=== PATIENT | female | born 1955 | race Caucasian/White ===

== ENCOUNTER 2018-07-06 11:06 | Emergency (ER) | payer BC, SELFPAY ==
[2018-07-06] VITALS (11 sets, daily range): BP systolic 108–152; BP diastolic 63–78; PULSE 64–85; RESP 14–34; TEMP 36.6; O2SAT 95–100; BMI 38.2
[2018-07-06 11:34] LABS: Hemoglobin 15.2 g/dL (12.0-16.0); Mean Corpuscular HGB Conc 33.8 % (30-36); Mean Corpuscular Volume 82.8 fL (80-100); Platelet Count 254 X10^3/uL (150-400); Red Blood Cell Count 5.43 X10^6/uL (4.0-5.2); Red Cell Distribution Width 14.2 % (11.6-14.8); White Blood Cell Count 10.2 X10^3/uL (4.5-11.0)
[2018-07-06 11:40] LABS: Alanine Aminotransferase 59 IU/L (9-52); Albumin 4.6 g/dL (3.5-5.0); Albumin Globulin Ratio 1.4 (1.0-2.8); Alkaline Phosphatase 75 U/L (38-126); Aspartate Aminotransferase 49 IU/L (14-36); BUN Creatinine Ratio 15.7 (6-22); Bilirubin Total 1.3 mg/dL (0.2-1.3); Blood Urea Nitrogen 11 mg/dL (7-17); Carbon Dioxide 27 mmol/L (22-32); Chloride 104 mmol/L (98-107); Creatine Kinase 148 U/L (30-135); Estimated Glomerular Filt Rate > 60.0 mL/min (>60); Globulin 3.4 g/dL (1.7-4.1); Glucose 100 mg/dL (80-110); HEMOLYSIS 23 (0-50); Potassium 4.2 mmol/L (3.4-5.1); Sodium 143 mmol/L (137-145)
[2018-07-06 11:54] LABS: Troponin I < 0.012 ng/mL (0.01-0.034)
[2018-07-06 11:55] LABS: CKMB % Relative Index 0.5 % (1.5-5.0); Creatine Kinase MB 0.78 ng/mL (<2.37); Neutrophils Absolute Manual 6834 /uL (3000-5900); Total Cells Counted 100
[2018-07-06 11:56] LABS: RBC Morphology Normal Morphology
[2018-07-06 13:14] LABS: Lipase 54 U/L (23-300)
--- NOTE | 2018-07-06 14:15 | DI.US.S_ITS ---
PROCEDURE: US ABDOMEN COMPLETE INDICATIONS: upper abd pain, eval CBD root TECHNIQUE: Real-time scanning was performed of the abdominal and retroperitoneal organs, with image documentation. COMPARISON: None. FINDINGS: Liver: Liver is normal in size and demonstrates diffusely increased echotexture. Gallbladder: Surgically absent. Biliary ducts: Intrahepatic bile ducts are non-dilated. Extrahepatic bile duct caliber measures 12 mm. Normal is 6-7 mm or less in diameter, or 10 mm or less post-cholecystectomy. Pancreas: Obscured by overlying bowel gas. Spleen: Spleen is normal in size and homogeneous in echotexture. Kidneys: Kidneys are normal in size and echotexture. Right kidney measures 11.9 cm long; left kidney measures 11.6 cm long. No hydronephrosis or nephrolithiasis. No solid masses. Aorta: Obscured by overlying bowel gas. Iliacs: Proximal common iliac arteries are obscured by overlying bowel gas. IVC: Intrahepatic inferior vena cava is normal the visualized. Miscellaneous: No free abdominal fluid. IMPRESSION: 1. Diffusely increased hepatic echotexture. This finding is most likely secondary to hepatic fatty infiltration although other hepatocellular disease may have a similar appearance. Recommend clinical correlation. 2. There is dilation of common bile duct, which may be related to cholecystectomy or caused by biliary obstruction. Please correlate with serum bilirubin. 3. Suboptimal examination. Pancreas, aorta, and proximal common iliac arteries are obscured by overlying bowel gas. Dictated by: Rome Gaines M.D. on 07/06/2018 at 16:28 Approved by: Rome Gaines M.D. on 07/06/2018 at 16:31
--- NOTE | 2018-07-06 15:29 | ED.CHESTPAIN ---
HPI - Chest Pain General Chief Complaint: Chest Pain Stated Complaint: PER DR BURKETT GET CHECKED ? HEART ATTACK Time Seen by Provider: 07/06/18 11:13 Source: patient Mode of arrival: ambulatory Limitations: no limitations History of Present Illness HPI narrative: Patient complains of pain across her bilateral upper abdomen and lower chest in a band, on and off for the last several days. Patient states her last episode was 530 this morning, and lasted for about an hour. Patient states that she has noticed that the pain has come on the last couple of times after she has eaten chocolate candies. Patient states she has a history of cholecystectomy, but that the symptoms feel very much like when she used to have her gallbladder attacks. Patient states that she has no history of coronary artery disease that she knows of. She has not noticed any change in her symptoms or initiation of symptoms with any sort of exertion. Patient states she does not exercise much, but that she does try to eat healthy fully and does not have any medical problems that she knows of. Patient states that she does have a family history of coronary artery disease in her parents, but that they were smokers and lived very unhealthful lifestyles. Patient states she feels fine now and has no other complaints at this time. Her pain at the time of occurrence was about a 6/10. It is now 0/10. She states that it did radiate to her left shoulder and arm. No associated shortness of breath, nausea, or diaphoresis. Related Data Home Medications Medication Instructions Recorded Confirmed Vitamin D Gummy 1 tab PO DAILY 07/06/18 07/06/18 Allergies Allergy/AdvReac Type Severity Reaction Status Date / Time erythromycin base Allergy Unknown Verified 07/06/18 11:15 [ERYTHROMYCIN BASE] Review of Systems Review of Systems All systems reviewed & are unremarkable except as noted in HPI and below Constitutional Denies chills, Denies fever(s), Denies lethargy and Denies weakness Eyes Denies change in vision, Denies eye discharge, Denies irritation and Denies loss of vision ENT Ears, Nose, Mouth, and Throat: Denies change in voice, Denies neck pain and Denies sore throat Cardiovascular Denies chest pain, Denies irregular heart rhythm, Denies lightheadedness, Denies palpitations, Denies dyspnea, Denies dyspnea on exertion and Denies orthopnea Respiratory Denies cough, Denies dyspnea, Denies dyspnea on exertion and Denies wheezing Gastrointestinal Gastrointestinal: Reports abdominal pain, Denies change in bowel habits, Denies diarrhea, Denies nausea and Denies vomiting Genitourinary Denies hematuria, Denies flank pain, Denies urinary incontinence and Denies urinary urgency Musculoskeletal Denies neck pain Integumentary/Breasts Denies pruritus, Denies erythema, Denies rash and Denies wounds Neurologic Denies confusion, Denies loss of vision and Denies weakness Psychiatric Denies anxiety, Denies confusion, Denies depression, Denies homicidal ideation and Denies suicidal ideation Endocrine Denies palpitations Hematologic/Lymphatic Denies easy bruising Allergic/Immunologic Denies wheezing PFSH Medical History Anxiety (Chronic) Asthma (Chronic 1985) Cataract (Chronic 2009) Cervical radiculopathy (Chronic) Hayfever (Chronic) Hemorrhoids (Chronic) IBS (irritable bowel syndrome) (Chronic 1997) Lactose intolerance (Chronic 1997) Lumbar radiculopathy (Chronic) PTSD (post-traumatic stress disorder) (Chronic) Rosacea (Chronic) Shoulder pain (Chronic 2014) Acne (Resolved) Chicken pox (Resolved) Dermoid cyst (Resolved 1985) Dermoid cyst (Resolved 1987) Endometriosis (Resolved 1985) Gastric ulcer (Resolved 1995) Measles (Resolved) Mumps (Resolved) Ovarian cyst (Resolved) Surgical History Anesthesia (Resolved) History of cosmetic surgery (Resolved ~2001) History of oophorectomy, unilateral (Resolved 1985) History of oophorectomy, unilateral (Resolved 1987) Status post LASIK surgery (Resolved ~1999) Status post appendectomy (Resolved 1967) Status post cholecystectomy (Resolved 1996) Family History Brother Age: 58 Lymphoma Cancer Diabetes mellitus Asthma Brother Age: 57 Emphysema, unspecified Asthma Father Heart disease Lung disease Alcoholism Mother Age: 77 Heart disease Emphysema, unspecified Grandfather Heart disease Heart attack Grandmother Cancer Breast cancer Sister Age: 44 Asthma Brother No problems noted. Grandfather No problems noted. Grandmother MVA (motor vehicle accident) Sister No problems noted. Sister No problems noted. Social History Smoking Status: Never smoker Exam Initial Vital Signs Initial Vital Signs: Vital Signs Temperature 97.8 F 07/06/18 11:15 Pulse Rate 78 07/06/18 11:15 Respiratory Rate 18 07/06/18 11:15 Blood Pressure 108/78 07/06/18 11:15 Pulse Oximetry 99 07/06/18 11:15 Const General: cooperative and well developed Nutritional Appearance: well nourished Orientation: alert, awake, oriented x3 and not confused [facility] Head: normocephalic and atraumatic Ears: external ears normal Nose: external nose normal and No nasal discharge Face and sinus: face symmetric and No dry mucous membranes Mouth: oral mucosae normal and moist mucous membranes Teeth and gingiva: dentition normal Eyes General: appearance normal, both eyes and all related structures Eyelids: eyelids normal Conjunctivae: conjunctivae normal Sclera: sclerae normal Pupils: PERRL EOM: EOM intact bilaterally Neck Neck: normal visual inspection, trachea midline, No lymphadenopathy, No midline deformity and No JVD Lymphatic: No lymphedema Chest Chest: normal inspection of the chest Resp Effort & Inspection: normal respiratory effort, able to speak in complete sentences, no respiratory distress and no use of accessory muscles Auscultation: clear to auscultation bilaterally, no rales, no rhonchi and no wheezes Cardio Rate: regular rate Rhythm: regular rhythm Heart Sounds: no click, no gallops, no murmurs and no rubs Pulses: normal peripheral pulses GI Inspection: non-distended Palpation: soft, no hepatosplenomegaly, No guarding, No pulsatile mass and tender (Mild, epigastric) Auscultation: normal bowel sounds Back/Spine/Pelvis Back: No CVA tenderness Cervical Spine: cervical ROM normal and No pain with cervical ROM Thoracic/Lumbar Spine: thoracic and lumbar spine normal to inspection Skin General: no rashes or lesions noted, No jaundice and No petechiae Neuro General: alert, oriented x3, gait normal and no focal motor deficits Speech: speech normal Extrem General: full ROM, no clubbing, cyanosis or edema, no pedal edema and no calf tenderness Psych Appearance: well kempt Mental Status: mental status grossly normal Attitude: cooperative Thought Content: normal and suicidality Judgment: judgment good Course Course Narrative: Patient was worked up with labs, EKG, and ultimately, ultrasound of the right upper quadrant, after her LFTs were found to be mildly elevated. The patient's workup ultimately was negative. Patient remained stable in the emergency department and did not report worsening of symptoms. In fact, symptoms had completely resolved by the time of the patient's visit. Orders Ordered: ED Orders 07/06/18 11:13 EKG-12 Lead Stat 07/06/18 11:20 CBC manual diff [Complete Blood Count MAN DIFF] Stat CMP [Comprehensive Metabolic Panel] Stat Troponin & CK Cardiac Panel Stat 07/06/18 14:15 US abdomen limited Stat Vital Signs - 8 hr 07/06/18 11:15 07/06/18 11:30 07/06/18 12:00 Temperature 97.8 F Pulse Rate 78 69 64 Respiratory Rate 18 14 14 Blood Pressure 108/78 Blood Pressure [Left Arm] 145/63 H 140/66 Pulse Oximetry 99 97 100 07/06/18 12:30 07/06/18 13:00 07/06/18 13:30 Temperature Pulse Rate 73 65 85 Respiratory Rate 16 15 17 Blood Pressure Blood Pressure [Left Arm] 136/66 145/72 H 130/76 Pulse Oximetry 100 97 99 07/06/18 14:00 07/06/18 14:30 Temperature Pulse Rate 70 Respiratory Rate 14 Blood Pressure Blood Pressure [Left Arm] 133/66 135/75 Pulse Oximetry 96 MDM - Chest Pain Medical Records Data Attestation: I reviewed the patient's medical records. Lab Data Attestation: I reviewed the patient's lab results. Result diagrams: 07/06/18 11:20 07/06/18 11:20 Lab Results 07/06/18 07/06/18 07/06/18 Range/Units 11:20 11:20 Unknown WBC 10.2 (4.5-11.0) X10^3/uL RBC 5.43 H (4.0-5.2) X10^6/uL Hgb 15.2 (12.0-16.0) g/dL Hct 45.0 (36-46) % MCV 82.8 (80-100) fL MCH 28.0 (26-34) PG MCHC 33.8 (30-36) % RDW 14.2 (11.6-14.8) % Plt Count 254 (150-400) X10^3/uL Total Counted 100 Seg Neutrophils % 67.0 (38-70) % Lymphocytes % (Manual) 25.0 (25-45) % Monocytes % (Manual) 6.0 (2-11) % Eosinophils % (Manual) 2.0 (2-4) % Neutrophils # (Manual) 6834 H (6523-7834) /uL RBC Morphology Normal morphology Sodium 143 (137-145) mmol/L Potassium 4.2 (3.4-5.1) mmol/L Chloride 104 (98-107) mmol/L Carbon Dioxide 27 (22-32) mmol/L BUN 11 (7-17) mg/dL Creatinine 0.70 (0.52-1.04) mg/dL Estimated GFR > 60.0 (>60) mL/min BUN/Creatinine Ratio 15.7 (6-22) Glucose 100 (80-110) mg/dL Calcium 9.0 (8.4-10.2) mg/dL Total Bilirubin 1.3 (0.2-1.3) mg/dL AST 49 H (14-36) IU/L ALT 59 H (9-52) IU/L Alkaline Phosphatase 75 (38-126) U/L Total Creatine Kinase 148 H (30-135) U/L CK-MB (CK-2) 0.78 (<2.37) ng/mL CK-MB (CK-2) Rel Index 0.5 L (1.5-5.0) % Troponin I < 0.012 (0.01-0.034) ng/mL Total Protein 8.0 (6.3-8.2) g/dL Albumin 4.6 (3.5-5.0) g/dL Globulin 3.4 (1.7-4.1) g/dL Albumin/Globulin Ratio 1.4 (1.0-2.8) Lipase 54 (23-300) U/L Imaging Data US - abdomen: Radiologist's impression: PROCEDURE: US ABDOMEN COMPLETE INDICATIONS: upper abd pain, eval CBD root TECHNIQUE: Real-time scanning was performed of the abdominal and retroperitoneal organs, with image documentation. COMPARISON: None. FINDINGS: Liver: Liver is normal in size and demonstrates diffusely increased echotexture. Gallbladder: Surgically absent. Biliary ducts: Intrahepatic bile ducts are non-dilated. Extrahepatic bile duct caliber measures 12 mm. Normal is 6-7 mm or less in diameter, or 10 mm or less post-cholecystectomy. Pancreas: Obscured by overlying bowel gas. Spleen: Spleen is normal in size and homogeneous in echotexture. Kidneys: Kidneys are normal in size and echotexture. Right kidney measures 11.9 cm long; left kidney measures 11.6 cm long. No hydronephrosis or nephrolithiasis. No solid masses. Aorta: Obscured by overlying bowel gas. Iliacs: Proximal common iliac arteries are obscured by overlying bowel gas. IVC: Intrahepatic inferior vena cava is normal the visualized. Miscellaneous: No free abdominal fluid. IMPRESSION: 1. Diffusely increased hepatic echotexture. This finding is most likely secondary to hepatic fatty infiltration although other hepatocellular disease may have a similar appearance. Recommend clinical correlation. 2. There is dilation of common bile duct, which may be related to cholecystectomy or caused by biliary obstruction. Please correlate with serum bilirubin. 3. Suboptimal examination. Pancreas, aorta, and proximal common iliac arteries are obscured by overlying bowel gas. Dictated by: Rome Gaines M.D. on 07/06/2018 at 16:28 Approved by: Rome Gaines M.D. on 07/06/2018 at 16:31 ECG Data Attestation: I personally reviewed and interpreted this ECG as follows: (See below) Interpretation: Twelve lead EKG performed on July 06, 2018 at 11:13 a.m., as follows: Regular ventricular rhythm with a rate of 68 beats per minute NJ interval was 165 milliseconds QRS duration 81 millisecond QTC interval [address] or T-wave abnormalities In summary, no STEMI; normal sinus rhythm and normal EKG as interpreted by ED MD. [facility] Narrative Medical decision making narrative: The patient was advised of her negative workup. We have discussed possible etiologies for her pain as well as the usual indications for return. We have also discussed home management and need for follow-up. Discharge Plan Departure Patient Disposition: Home Clinical Impression: Atypical chest pain, Abdominal pain Discharge Date/Time: 07/06/18 17:42 Interventions: ED Discharge Assessment Last Done: 07/06/18 17:41 Instructions: DI for Abdominal Pain-Adult Activity Restrictions/Additional Instructions: Your labs looked good, with the exception of your liver enzymes, which were mildly elevated. Ultrasound was done for this reason, and did not show anything concerning. Your EKG also looked good, as did your pancreatic enzymes. There is no evidence of a serious or emergent cause of your symptoms at this time. Please discuss with your doctor, the possibility of having a stress test to further evaluate your heart. Prescriptions: No Action Vitamin D Gummy 1 tab PO DAILY RF: 0 Referrals: Mariaelena Tanner PA-C [Primary Care Provider] -
== END 2018-07-06 17:42 | disposition home or self-care (01) ==
PROVIDERS: Emergency Provider Emergency Medicine; PCP Physician Assistant Medical
DX: R07.89 Other chest pain (principal); R10.9 Unspecified abdominal pain
CPT/HCPCS: 36591; 76705; 80053; 82550; 82553; 83690; 84484; 85025; 93005; 99283; 99285

== ENCOUNTER → 2018-08-12 10:29 | Outpatient (CLI) | payer BC, SELFPAY ==
--- NOTE | 2018-08-12 | DI.CT.S_ITS ---
PROCEDURE: CT ABDOMEN PELVIS W CON INDICATIONS: ABDOMINAL PAIN TECHNIQUE: After the administration of oral and intravenous contrast, 5 mm thick sections acquired from the diaphragms to the symphysis. 5 mm thick coronal and sagittal reformats were performed. For radiation dose reduction, the following was used: automated exposure control, adjustment of mA and/or kV according to patient size. COMPARISON: [facility], US, US ABDOMEN COMPLETE, 07/06/2018, 16:13. FINDINGS: Image quality: Excellent. ABDOMEN: Lung bases: There is a small right lower lobe pulmonary nodule measuring up to approximately 6 mm with a small internal focus of calcification. Heart size is normal. Solid organs: Liver demonstrates no focal hepatic lesions. There is mild heterogeneous enhancement which may represent heterogeneous fat saturation or mild vascular shunting. The gallbladder is surgically absent. There is mild intra-and extra hepatic biliary ductal dilatation with the common bile duct measuring up to approximately 1.3 cm tapering distally into the ampulla of Vater. No calcified obstructing stone visualized. Pancreas enhances normally. No pancreatic duct dilatation or discrete pancreatic mass identified. Spleen is normal in size and enhancement. No adrenal nodules. Kidneys demonstrate hydronephrosis. Peritoneum and bowel: Stomach, small bowel, and colon loops are normal in caliber and wall thickness. There is colonic diverticulosis without acute diverticulitis. No free fluid or air. Nodes and vessels: No retroperitoneal or mesenteric adenopathy. There is mild hazy fat stranding of the mesentery with scattered small subcentimeter mesenteric lymph nodes. Aorta and inferior vena cava are normal in caliber. Miscellaneous: No ventral hernias. PELVIS: Genitourinary: Bladder wall thickness is normal. A small amount of endometrial fluid is demonstrated in the uterus. There is a right adnexal cyst measuring up to 2.2 cm. Miscellaneous: No inguinal hernias or adenopathy. Bones: No suspicious bony lesions. No vertebral body compression fractures. IMPRESSION: 1. 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 2. Mild biliary ductal dilatation may be associated with prior cholecystectomy. Recommend correlation with laboratory values. 3. Small amount of endometrial fluid and small right ovarian cyst. Given patient's age, recommend further evaluation with pelvic ultrasound if clinically indicated. Dictated by: Terry Damon M.D. on 08/12/2018 at 15:53 Approved by: Terry Damon M.D. on 08/12/2018 at 15:58
[2018-08-12 11:36] LABS: BUN Creatinine Ratio 18.8 (6-22); Blood Urea Nitrogen 15 mg/dL (7-17); Estimated Glomerular Filt Rate > 60.0 mL/min (>60)
== END ==
PROVIDERS: PCP Physician Assistant Medical; Visit Provider Physician Assistant Medical
DX: R10.13 Epigastric pain (principal); K83.8 Other specified diseases of biliary tract; K57.90 Diverticulosis of intestine, part unspecified, without perforation or abscess without bleeding; N83.201 Unspecified ovarian cyst, right side; R91.1 Solitary pulmonary nodule; Z90.49 Acquired absence of other specified parts of digestive tract; R79.89 Other specified abnormal findings of blood chemistry; R93.89 Abnormal findings on diagnostic imaging of other specified body structures
CPT/HCPCS: 36415; 74177; 82565; 84520; Q9967

== ENCOUNTER 2018-08-24 08:27 | Day surgery (SDC) | payer BC, SELFPAY ==
[2018-08-24] VITALS (7 sets, daily range): BP systolic 110–141; BP diastolic 57–83; PULSE 70–82; RESP 12–16; TEMP 36.2–37; O2SAT 96–99; BMI 39.1
--- NOTE | 2018-08-24 | PATH_ITS ---
[facility] Accession Number: [id number] . 01 Material submitted: . PART A: TRANSVERSE COLON POLYP PART B: RECTAL POLYP . 02 Diagnosis: A. Transverse Colon Polyp: Superficial portion of colorectal mucosa with scattered, prominent lymphoid aggregates, focal features of prolapse and focal hyperplastic mucosal change. Additional levels through the block are noncontributory. . B. Rectal Polyp: Hyperplastic polyp. MRV/08/25/2018 . 02 Electronically signed: . Tamra Torrez MD, Pathologist NPI- [id number] . 01 Gross description: . Received two formalin-filled containers, both labeled with the patient's name: . A. In a container labeled transverse colon polyp, the specimen consists of a 0.3 cm portion of tissue, entirely submitted in cassette A. B. In a container labeled rectal polyp, the specimen consists of a 0.4 cm portion of tissue, entirely submitted in cassette B. ([id number]) /FRR . 02 Pathologist provided ICD-10: K63.5 . 02 CPT . 031491, [id number] Performed at: 01 [facility] [address] [id number] MD Terry Mann MD Phone: [phone] Performed at: 02 [facility] [address] [place], [place] [id number] MD Taylor Cheema MD Phone: [phone]
--- NOTE | 2018-08-24 07:39 | PM.HP.1 ---
History of Present Illness Date Patient Seen: 08/24/18 Chief complaint: 96147 Colonoscopy Narrative: 62-year-old female who was previously seen at our office on 08/18/2018 for upper abdominal pain is due for colon cancer screening. Please refer to our office note for further details. Prior colonoscopy done about 10 years ago with no findings. Patient History Medical History Anxiety (Chronic) Asthma (Chronic 1985) Cataract (Chronic 2009) Cervical radiculopathy (Chronic) Hayfever (Chronic) Hemorrhoids (Chronic) IBS (irritable bowel syndrome) (Chronic 1997) Lactose intolerance (Chronic 1997) Lumbar radiculopathy (Chronic) PTSD (post-traumatic stress disorder) (Chronic) Rosacea (Chronic) Shoulder pain (Chronic 2014) Acne (Resolved) Chicken pox (Resolved) Dermoid cyst (Resolved 1985) Dermoid cyst (Resolved 1987) Endometriosis (Resolved 1985) Gastric ulcer (Resolved 1995) Measles (Resolved) Mumps (Resolved) Ovarian cyst (Resolved) Family & Social History Tobacco & Substance use: Smoking Status Never smoker Meds Home Medications Medication Instructions Recorded Confirmed Type Vitamin D Gummy 1 tab PO DAILY 07/06/18 08/24/18 History Allergies Allergy/AdvReac Type Severity Reaction Status Date / Time erythromycin base Allergy Intermediate Rash Verified 08/24/18 09:05 [ERYTHROMYCIN BASE] Exam Narrative Exam Narrative: General: Patient is obese, not in apparent distress Cardiovascular: Regular rate and rhythm, no murmurs, rubs, or gallops; no evidence of edema; no palpable abdominal aortic aneurysm Gastrointestinal: Normoactive bowel sounds, soft, nontender, nondistended, no rebound tenderness, no hepatosplenomegaly, no evidence of hernia Assessment & Plan (1) Colon cancer screening: Current visit: No Status: Acute Assessment/Plan Narrative: 62-year-old female due for repeat colon cancer screening. Prior colonoscopy unrevealing however record is not available Regarding the procedure(s), the risks and potential complications, benefits, and alternatives (including not doing the procedure) were discussed with the patient. The risks include but are not limited to bleeding, splenic injury, infection, perforation which may require surgical intervention, missed lesions, and adverse reactions to sedative medicines. After a question and answer period, the patient agreed to proceed with the procedure(s) and gives informed consent.
[2018-08-24] MEDS: SODIUM CHLORIDE 0.9% 1,000 ML 70 ML IV (09:00)
[2018-08-24] MEDS: MIDAZOLAM 5 MG/5 ML VIAL IV (09:35)
[2018-08-24] MEDS: fentaNYL 250 MCG/5 ML INJ IV (09:36)
--- NOTE | 2018-08-24 09:47 | PM.OP.ENDO ---
Operative Date/Time/Diagnoses Date of procedure: 08/24/18 Procedure Notes Procedure in detail: Surgeon: Joseph Willett MD Procedure: Colonoscopy with polypectomy Preoperative diagnosis: Colon cancer screening Postoperative diagnosis: Colon polyps status post polypectomy, grade 2 internal hemorrhoids Medications: Conscious sedation using 6 mg IV of Midazolam and 100 mcg IV of Fentanyl Preanesthesia Assessment An H and P was performed/updated and the Px?s ASA class is 2. The procedure was discussed in detail with the patient. The potential risks and complications including infection, bleeding, missed lesions, perforation, need for surgery in case of perforation, prolonged hospital stay, and were explained. A brief question and answer period was allotted and once all questions were answered, informed consent was obtained. The patient was brought back to the procedure room and placed on standard monitoring. The patient?s vital signs were monitored continuously throughout the entire procedure. Prior to starting, a timeout was performed to confirm the patient?s identity, allergies, medications, and procedure. Procedure in detail The patient was placed in left lateral decubitus position and once adequate sedation was obtained a HELIO was performed. The digital rectal examination did not reveal any palpable lesions. The tip of the colonoscope was placed in the anal canal and advanced without difficulty all the way to the cecum which was identified by the appendiceal orifice and the ileocecal valve. The terminal ileum was intubated to a distance of 5 cm from the ileocecal valve and the mucosa appeared normal. Careful examination of all hernandez of the colon was performed with irrigation of any residual stool. In the transverse colon, there was note of a 2 mm sessile polyp which was removed by means of cold Jumbo forceps. Resection and retrieval were complete with minimal bleeding. In the rectum, there was note of a 3 mm sessile polyp which was removed by means of cold Jumbo forceps. Resection and retrieval were complete with minimal bleeding Retroflexion was performed in the rectum which revealed grade 2 internal hemorrhoids. The patient tolerated the procedure well and will be brought back to the recovery area to be discharged once criteria are met. The prep was judged to be good/excellent and adequate to identify polyps less than 5 mm. The withdrawal time was 8 min. The total physician intraservice time was 18 min. Complications There were no complications and estimated blood loss was minimal. Recommendations: Resume previous diet Continue outPx medications Follow up pathology results Repeat colonoscopy in 5 or 10 years depending on pathology results Return to our office if he have any recurrence in abdominal pain An emergency contact number was given to the patient for any complications related to the procedure
--- NOTE | 2018-08-24 09:50 | PM.DS.1 ---
History of Present Illness Chief complaint: [id number] Colonoscopy Narrative: 62-year-old female who was previously seen at our office on 08/18/2018 for upper abdominal pain is due for colon cancer screening. Please refer to our office note for further details. Prior colonoscopy done about 10 years ago with no findings. Discharge Providers Primary care physician: Mariaelena Tanner PA-C Discharge provider: Joseph Willett MD Discharge Date: 08/24/18 Exam Vital Signs (past 8 hours): - 08/24/18 08:52 Temperature 97.1 F L Pulse Rate 79 Respiratory Rate 16 Blood Pressure 141/83 H Pulse Oximetry 98 Oxygen Delivery Method Room Air Narrative Exam Narrative: General: Patient is obese, not in apparent distress Cardiovascular: Regular rate and rhythm, no murmurs, rubs, or gallops; no evidence of edema; no palpable abdominal aortic aneurysm Gastrointestinal: Normoactive bowel sounds, soft, nontender, nondistended, no rebound tenderness, no hepatosplenomegaly, no evidence of hernia Discharge Plan Discharge Plan Patient Disposition: Home Discharge comment: We will discharge you with a copy of your procedure report Discharge Med Rec/Prescriptions Prescriptions: Continued Vitamin D Gummy 1 tab PO DAILY RF: 0 Follow up/Referrals: Mariaelena Tanner PA-C [Primary Care Provider] - Discharge Orders: Discharge (Order); Ordered 08/24/18 Ordered By: Joseph Willett Provider Discharge Instructions Diet: Diet as Tolerated Visit Report/Discharge Packet Stand Alone Forms: Colonoscopy Result: [facility], Surgery Discharge Discharge Data Primary Care Provider: Mariaelena Tanner Attending Provider: Joseph Willett
--- NOTE | 2018-08-24 11:21 | SUR.PHASEII ---
d/c information done by dolly king rn, charting completed by this rn.
== END 2018-08-24 10:40 | disposition home or self-care (01) ==
PROVIDERS: PCP Physician Assistant Medical; Visit Provider Internal Medicine Gastroenterology
PROC: 0DJD8ZZ Inspection of Lower Intestinal Tract, Via Natural or Artificial Opening Endoscopic (ICD-10-PCS; CPT 45378; principal; 2018-08-24 09:30)
DX: Z12.11 Encounter for screening for malignant neoplasm of colon (principal); K64.1 Second degree hemorrhoids; F41.9 Anxiety disorder, unspecified; K63.5 Polyp of colon; K62.1 Rectal polyp
CPT/HCPCS: 45380; J2250; J3010

== ENCOUNTER → 2021-06-03 12:36 | Outpatient (CLI) | payer BC, SELFPAY ==
--- NOTE | 2021-06-03 12:39 | DI.US.S_ITS ---
PROCEDURE: US PELVIC COMPLETE INDICATIONS: PMB TECHNIQUE: Real-time scanning was performed of the pelvic organs, with image documentation. Additional endovaginal scanning was necessary due to incomplete visualization of the adnexal and endometrial structures by transabdominal scanning. COMPARISON: [facility], US, US PELVIC COMPLETE, 10/11/2020, 12:58. FINDINGS: Uterus: Uterus is normal in size at 8.2 x 3.7 x 4.0 cm. The endometrium measures 6.9 mm in combined thickness. Sub cm submucosal fibroid. Ovaries: Ovary is normal measuring 2.0 x 1.5 x 1.3 cm on the right and 1.5 x 1.1 x 1.5 cm on the left. Simple right paraovarian cyst measuring 2.3 cm. Other: No pathologic free abdominal or pelvic fluid. IMPRESSION: 1. Thickening of the endometrial complex in this postmenopausal female measuring 6.9 mm. Endometrial biopsy is recommended to exclude underlying neoplastic process. 2. Subcentimeter submucosal fibroid. 3. Simple right paraovarian cyst. Dictated by: Kevin Hernandez [facility] Interpreted: My Telles MD on 06/03/2021 at 13:51 Transcribed by: BENNY on 06/03/2021 at 13:53 Approved by: My Telles MD, PhD on 06/03/2021 at 15:04
== END ==
PROVIDERS: Referring Provider Obstetrics & Gynecology; Visit Provider Obstetrics & Gynecology
DX: N95.0 Postmenopausal bleeding (principal); D25.0 Submucous leiomyoma of uterus; N83.291 Other ovarian cyst, right side; R93.89 Abnormal findings on diagnostic imaging of other specified body structures
CPT/HCPCS: 76830; 76856

== ENCOUNTER → 2021-08-04 09:38 | Outpatient (CLI) | payer BC, SELFPAY ==
[2021-08-04 10:07] LABS: COVID19 -Nasal RAPID Negative (Negative)
== END ==
PROVIDERS: Referring Provider Obstetrics & Gynecology; Visit Provider Obstetrics & Gynecology
DX: Z01.812 Encounter for preprocedural laboratory examination (principal); Z20.822 Contact with and (suspected) exposure to COVID-19
CPT/HCPCS: 87635

== ENCOUNTER 2021-08-05 08:45 | Day surgery (SDC) | payer BC, SELFPAY ==
[2021-08-04 14:52] VITALS: BMI 38.9
[2021-08-05] VITALS (7 sets, daily range): BP systolic 114–142; BP diastolic 62–84; PULSE 65–71; RESP 9–16; TEMP 36.2–36.8; O2SAT 94–974; BMI 38.9
--- NOTE | 2021-08-05 | PATH_ITS ---
[facility] Accession Number: [id number] . 01 Material submitted: . endometrium - ENDOMETRIAL POLYP AND CURETTINGS . 02 Diagnosis: Endometrial Polyp and Curettings: Patchy glandular crowding in a background of disordered proliferative endometrium; negative for cytologic atypia or malignancy. Many endometrial tissue fragments demonstrate underlying myometrium, suggestive of possible submucosal leiomyoma, in the appropriate clinical and imaging setting. MRV 08/07/2021 1401 Local . 02 Electronically signed: . Tamra Torrez MD, Pathologist NPI- [id number] . 01 Gross description: . ENDOMETRIAL POLYP AND CURETTINGS: Received in formalin are minute fragments of mucoid and hemorrhagic material measuring 1.3 x 1.2 x 0.4 cm in aggregate. Submitted in toto in 1 cassette. /NATY 08/06/20211945 Local . 02 Pathologist provided ICD-10: N85.00 . 02 CPT . 360132 Performed at: 01 [facility] [address], [place], [place] [id number] MD Terry Mann MD Phone: [phone] Performed at: 02 [facility] [address] [place], [place] [id number] MD Taylor Cheema MD Phone: [phone]
[2021-08-05] MEDS: LACTATED RINGERS 1,000 ML 42 ML IV (09:14)
--- NOTE | 2021-08-05 09:38 | SUR.OPER ---
Lithotomy on padded OR bed, head on pillow, arms secured on padded arm boards at <90 degrees abduction. Legs secured in padded yellow fins stirrups.
--- NOTE | 2021-08-05 09:42 | PM.HP.1 ---
History of Present Illness History of Present Illness Date Patient Seen: 08/05/21 Time Patient Seen: 09:42 Chief complaint: SDC Narrative: Patient is a 65-year-old with endometrial hyperplasia. She presents for a D&C hysteroscopy. She has had postmenopausal bleeding within the last year. Patient History Medical History (Updated 10/11/20 @ 13:12 by Loreto Bragg MD) Acne Anxiety Asthma (1985) Cataract (2009) Cervical radiculopathy Chicken pox Dermoid cyst (1985) Dermoid cyst (1987) Endometriosis (1985) Gastric ulcer (1995) Hayfever Hemorrhoids IBS (irritable bowel syndrome) (1997) Lactose intolerance (1997) Lumbar radiculopathy Measles Mumps Ovarian cyst PTSD (post-traumatic stress disorder) Rosacea Shoulder pain (2014) Surgical History Anesthesia History of cosmetic surgery (~2001) History of oophorectomy, unilateral (1985) History of oophorectomy, unilateral (1987) Status post appendectomy (1967) Status post cholecystectomy (1996) Status post LASIK surgery (~1999) Family & Social History Family History Brother Age: 61 Lymphoma Cancer Diabetes mellitus Asthma Brother Age: 60 Emphysema, unspecified Asthma Father Heart disease Lung disease Alcoholism Mother Age: 80 Heart disease Emphysema, unspecified Grandfather Heart disease Heart attack Grandmother Cancer Breast cancer Sister Age: 47 Asthma Brother No problems noted. Grandfather No problems noted. Grandmother MVA (motor vehicle accident) Sister No problems noted. Sister No problems noted. Social History: household members spouse Tobacco & Substance use: Smoking Status Never smoker alcohol intake never Substance Use Type does not use Meds Home Medications and Allergies Home Medications Medication Instructions Recorded Confirmed Type Vitamin D Gummy 1 tab PO DAILY 07/06/18 08/05/21 History medroxyprogesterone 10 mg tablet 10 mg PO DAILY #10 tab 10/16/20 08/05/21 Rx Allergies Allergy/AdvReac Type Severity Reaction Status Date / Time erythromycin base Allergy Intermediate Rash Verified 08/05/21 09:05 [ERYTHROMYCIN BASE] Exam Vital Signs (past 8 hours): - 08/05/21 09:07 Temperature 97.3 F L Pulse Rate 71 Respiratory Rate 16 Blood Pressure 142/84 H Pulse Oximetry 96 Oxygen Delivery Method Room Air Narrative Exam Narrative: HEENT: No thyromegaly, no anterior cervical or supraclavicular lymphadenopathy. Lungs:Clear to auscultation bilaterally, no wheezes. Cardiovascular: Regular rate and rhythm, no murmurs, rubs, or gallops. Abdomen: Multiple well-healed scars. No hepatosplenomegaly. No masses palpable. External genitalia: Normal Vagina: Normal Cervix: Normal Bimanual exam: 8 Week size uterus. Mobile. Extremities: No edema Assessment & Plan Assessment & Plan narrative: Assessment: 65-year-old with endometrial hyperplasia and postmenopausal bleeding over the last year Plan: D&C hysteroscopy The risks, benefits, and alternatives to the procedure were explained to the patient. The risks including bleeding, infection, and uterine perforation. She understands these risks and agrees to proceed. A full par Q was held and consent form was signed. It is necessary to perform this procedure at this time due to the high risk patient having endometrial cancer. COVID-19 COVID-19 status: Negative Result date/Date tested (Pos, Neg/Pending): 08/04/21 Time Spent With Patient Time with patient: less than 30 minutes Critical Care time: I spent a total of [] minutes of critical care time on this patient's care today; this time is exclusive of procedural time.
--- NOTE | 2021-08-05 09:45 | PM.PREOP ---
Pre-operative Note COVID-19 COVID-19 status: Negative Result date/Date tested (Pos, Neg/Pending): 08/04/21 Criteria for continued procedure: Delay expected to result in less-positive ultimate med/surg outcome Interval Note History & Physical reviewed/Exam performed by Physician: Yes Changes to H&P: No H&P completed within 30 days and has changed as indicated here:: 08/05/21
--- NOTE | 2021-08-05 10:38 | PM.GYNOP.1 ---
Operative Date/Time/Diagnoses Date of procedure: 08/05/21 Time of procedure: 10:38 Pre-op diagnosis: Endometrial hyperplasia Postmenopausal bleeding over the last year Post-op diagnosis: same Procedure & Clinicians Procedure: Procedures Operation Date: 08/05/21 09:45 Actual Procedure Side Surgeon p Hysteroscopy D&C, with polypectomy Jackie Judd MD Indications: Endometrial hyperplasia Postmenopausal bleeding over the last year Surgeon: Jackie Judd Anesthesia Type: General (LMA) Operative Notes Findings: 8 week size anteverted uterus Both fallopian tube ostia observed Several polyps clustered at the right cornua of the uterus Closure Type: not applicable Specimen(s): endometrial polyp Estimated blood loss (mL): 15 Blood products transfused: none Procedure in detail: After informed consent was obtained, the patient was taken to the operating room where she was placed in the dorsal supine position. After adequate mask general anesthesia was obtained, she was placed in the dorsal lithotomy position, and prepped and draped in the usual sterile fashion. A time-out was performed. A bivalve speculum was placed into the vagina and the anterior lip of the cervix was grasped with a single-tooth tenaculum. The cervical os was sequentially dilated until the hysteroscope could pass easily into the endometrial cavity. Initial inspection with the hysteroscope revealed both fallopian tube ostia. There was a cluster of several polyps at the right cornua of the uterus. The hysteroscope was removed. Polyp forceps were used to remove as many polyps as possible. The cervix was dilated further to the # 9 Hegar dilator. The resectoscope passed easily into the endometrial cavity. Using the loop with settings at 80 cut and 60 cautery, the last small polyps were resected and the base of all the polyps were cauterized for hemostasis. The resectoscope was removed from the uterus. Polyp forceps were used to remove the pieces of polyp that had been resected. The single-tooth tenaculum was removed from the anterior lip of the cervix. The bivalve speculum was removed from the vagina. Sponge, lap, and instrument counts were correct x2. The patient tolerated the procedure well, and was taken to PACU in stable condition. Complications: none Post-operative Condition: stable Disposition: PACU Plan for aftercare: Home after recovery
== END 2021-08-05 11:45 | disposition home or self-care (01) ==
PROVIDERS: Referring Provider Obstetrics & Gynecology; Visit Provider Obstetrics & Gynecology
PROC: 0UDB8ZZ Extraction of Endometrium, Via Natural or Artificial Opening Endoscopic (ICD-10-PCS; CPT 58558; principal; 2021-08-05 09:45)
DX: N85.00 Endometrial hyperplasia, unspecified (principal); N95.0 Postmenopausal bleeding
CPT/HCPCS: 58558; J1100; J1885; J2250; J2405; J2704; J3010

== ENCOUNTER 2021-11-30 07:27 | Emergency (ER) | payer OTHER, SELFPAY ==
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
[2021-11-30 07:50] VITALS: BP 177/94; PULSE 91; RESP 18; TEMP 36.9; O2SAT 98; BMI 39.9
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
--- NOTE | 2021-11-30 07:57 | DI.CT.S_ITS ---
PROCEDURE: CT CERVICAL SPINE WO CON INDICATIONS: trauma TECHNIQUE: Noncontrast 3 mm thick sections acquired from the skull base to the T4 level. Sagittal and coronal reformats were then constructed. For radiation dose reduction, the following was used: automated exposure control, adjustment of mA and/or kV according to patient size. COMPARISON: [facility], CT, CT CHEST ABD PEL W CON, 11/30/2021, 8:01. [facility], CT, CT HEAD/BRAIN WO CON, 11/30/2021, 8:01. FINDINGS: Image quality: This examination is somewhat limited by quantum mottle artifact. Bones: No fractures or dislocations. Visualized superior ribs are intact. Generalized cervical spine degenerative changes are seen. Soft tissues: Prevertebral soft tissues are normal in thickness. No paravertebral hematomas. No apical pneumothoraces. IMPRESSION: Negative for fracture. Dictated by: Mina Land M.D. on 11/30/2021 at 7:49 Approved by: Mina Land M.D. on 11/30/2021 at 7:51
--- NOTE | 2021-11-30 07:57 | DI.CT.S_ITS ---
PROCEDURE: CT CHEST ABD PEL W CON INDICATIONS: trauma TECHNIQUE: After the administration of intravenous contrast, 5 mm thick sections acquired from the lung apices to the symphysis. 2.5 mm thick coronal and sagittal reformats were acquired. Additional 7 mm thick coronal maximum intensity projection (MIP) reformats acquired through the lungs. Optional 10-minute delayed imaging may be performed from the kidneys to the bladder. For radiation dose reduction, the following was used: automated exposure control, adjustment of mA and/or kV according to patient size. COMPARISON: [facility], CT, CT ABDOMEN PELVIS W CON, 08/12/2018, 11:40. [facility], CT, CT CERVICAL SPINE WO CON, 11/30/2021, 8:01. [facility], CT, CT HEAD/BRAIN WO CON, 11/30/2021, 8:01. FINDINGS: Image quality: Excellent. CHEST: Lungs: No pulmonary contusions or lacerations. No acute airspace opacities. No pneumothorax or hemothorax. Central and peripheral airways appear patent and normal in caliber. Mediastinum: No mediastinal hematomas. Heart size is normal. No pericardial effusion. Thoracic aorta and pulmonary arteries demonstrate normal size and enhancement. No mediastinal or hilar adenopathy. Esophagus is normal in caliber. There is a small hiatal hernia. Chest wall: No rib fractures. No subcutaneous emphysema. No axillary or supraclavicular adenopathy. Thyroid gland demonstrates no significant abnormality. ABDOMEN: Solid organs: Liver is normal in size and enhancement, without lacerations. Gallbladder has been removed. Biliary system is mildly prominent at 12 mm. Pancreas enhances normally, without transection. Spleen is normal in size and enhancement, without lacerations. No adrenal hematomas. Both kidneys enhance normally, without hydronephrosis or lacerations. Peritoneum and bowel: No free fluid or air. Unenhanced bowel loops demonstrate normal wall thickness and caliber. Mild generalized mesenteric fatty stranding can be seen. Nodes and vessels: No retroperitoneal or mesenteric adenopathy. Aorta and inferior vena cava are normal in size and enhancement. Miscellaneous: No ventral hernias. PELVIS: Genitourinary: Bladder wall thickness is normal. The uterus appears normal for age. No adnexal masses are seen. Miscellaneous: No inguinal hernias or adenopathy. Bones: Pelvic ring and hip joints appear intact. No vertebral compression fractures. Lumbar spine degenerative changes are seen, which are overall worst at the L3-L4 level. Mild levoconvex scoliotic curvature is noted. IMPRESSION: No significant acute posttraumatic abnormality is seen. Generalized mesenteric stranding is seen, which is not significantly changed compared to 2019. This is nonspecific, yet most commonly seen in patients with chronic inflammation. Incidental note is made of: Small hiatal hernia Cholecystectomy, with mild stable biliary prominence Dictated by: Mina Land M.D. on 11/30/2021 at 7:51 Approved by: Mina Land M.D. on 11/30/2021 at 7:55
[2021-11-30] MEDS: ACETAMINOPHEN 325 MG TABLET 975 MG PO (08:02)
[2021-11-30 08:28] LABS: Add Manual Diff / Slide Review NO; Basophils Absolute Auto 100 /uL (0-100); Basophils Percent Auto 0.9 % (0-2); Eosinophils Absolute Auto 200 /uL (0-450); Eosinophils Percent Auto 1.7 % (2-4); Hematocrit 42.9 % (36-46); Hemoglobin 14.6 g/dL (12.0-16.0); Lymphocytes Absolute Auto 2000 /uL (1100-4500); Lymphocytes Percent Auto 18.3 % (25-40); Mean Corpuscular HGB Conc 33.9 % (30-36); Mean Corpuscular Hemoglobin 27.8 PG (26-34); Monocytes Absolute Auto 600 /uL (0-900); Monocytes Percent Auto 5.5 % (3-14); Neutrophils Absolute Auto 7900 /uL (1500-7000); Neutrophils Percent Auto 73.6 % (50-75); Platelet Count 245 X10^3/uL (150-400); Red Blood Cell Count 5.23 X10^6/uL (4.0-5.2); Red Cell Distribution Width 13.8 % (11.6-14.8); White Blood Cell Count 10.8 X10^3/uL (4.5-11.0)
[2021-11-30 08:34] LABS: Alanine Aminotransferase 25 IU/L (<35); Albumin 4.7 g/dL (3.5-5.0); Albumin Globulin Ratio 1.2 (1.0-2.8); Alkaline Phosphatase 63 U/L (38-126); Aspartate Aminotransferase 30 IU/L (14-36); BUN Creatinine Ratio 20.3 (6-22); Bilirubin Total 0.6 mg/dL (0.2-1.3); Blood Urea Nitrogen 15 mg/dL (7-17); Calcium 9.2 mg/dL (8.4-10.2); Carbon Dioxide 29 mmol/L (22-32); Chloride 104 mmol/L (98-107); Estimated Glomerular Filt Rate > 60 mL/min (>60); Globulin 3.9 g/dL (1.7-4.1); Glucose 119 mg/dL (80-110); HEMOLYSIS < 15 (0-50); Sodium 140 mmol/L (137-145); Total Protein 8.6 g/dL (6.3-8.2)
[2021-11-30 08:41] VITALS: BP 169/80; PULSE 83; O2SAT 95
[2021-11-30 09:00] VITALS: BP 167/77; PULSE 76; O2SAT 96
[2021-11-30] MEDS: KETOROLAC 30 MG/ML VIAL 15 MG IV (09:18)
== END 2021-11-30 09:27 | disposition home or self-care (01) ==
PROVIDERS: Emergency Provider Emergency Medicine
DX: S16.1XXA Strain of muscle, fascia and tendon at neck level, initial encounter (principal); M25.512 Pain in left shoulder; M25.511 Pain in right shoulder; V49.9XXA Car occupant (driver) (passenger) injured in unspecified traffic accident, initial encounter
CPT/HCPCS: 36415; 70450; 71260; 72125; 74177; 80053; 85025; 96374; 99284; J1885; Q9967

== ENCOUNTER → 2022-03-10 06:55 | Outpatient (CLI) | payer BC, SELFPAY ==
[2022-03-10 07:49] LABS: Alanine Aminotransferase 23 IU/L (<35); Albumin 4.2 g/dL (3.5-5.0); Albumin Globulin Ratio 1.2 (1.0-2.8); Alkaline Phosphatase 64 U/L (38-126); Aspartate Aminotransferase 26 IU/L (14-36); BUN Creatinine Ratio 13.7 (6-22); Bilirubin Total 0.9 mg/dL (0.2-1.3); Blood Urea Nitrogen 10 mg/dL (7-17); Calcium 8.5 mg/dL (8.4-10.2); Carbon Dioxide 31 mmol/L (22-32); Chloride 101 mmol/L (98-107); Cholesterol 178 mg/dL (140-199); Estimated Glomerular Filt Rate > 60 mL/min (>60); Globulin 3.5 g/dL (1.7-4.1); Glucose 106 mg/dL (80-110); HDL Cholesterol 45 mg/dL (40-60); HEMOLYSIS < 15 (0-50); LDL Cholesterol Calculated 110 mg/dL (<100); Potassium 3.8 mmol/L (3.4-5.1); Sodium 139 mmol/L (137-145); Total Protein 7.7 g/dL (6.3-8.2); Triglycerides 114 mg/dL (35-150)
[2022-03-10 09:17] LABS: TSH w/ Reflex to FT4 5.42 uIU/mL (0.47-4.68)
[2022-03-10 09:51] LABS: Free T4, Direct Thyroxine 1.27 ng/dL (0.78-2.19)
== END ==
PROVIDERS: PCP Family Medicine; Referring Provider Family Medicine; Visit Provider Family Medicine
DX: Z00.00 Encounter for general adult medical examination without abnormal findings (principal)
CPT/HCPCS: 36415; 80053; 80061; 84439; 84443

== ENCOUNTER → 2022-06-15 12:52 | Outpatient (CLI) | payer BC, SELFPAY ==
[2022-06-15 14:59] LABS: Thyroid Stimulating Hormone 3.21 uIU/mL (0.47-4.68)
== END ==
PROVIDERS: PCP Family Medicine; Referring Provider Family Medicine; Visit Provider Family Medicine
DX: E03.9 Hypothyroidism, unspecified (principal)
CPT/HCPCS: 36415; 84439; 84443

== ENCOUNTER 2022-08-29 00:05 | Emergency (ER) | payer BC, SELFPAY ==
[2022-08-29 00:15] VITALS: BP 199/93; PULSE 89; RESP 18; TEMP 36.7; O2SAT 97; BMI 38.2
[2022-08-29 00:46] LABS: Bacteria Urine None Seen; Culture Indicated Urine Cult Not Indicated; RBC Urine None Seen (0-5/HPF); WBC Urine None Seen (0-5/HPF)
--- NOTE | 2022-08-29 00:49 | ED_ITS ---
HPI - Abdominal Pain General Chief Complaint: Abdominal Pain Stated Complaint: rt. flank pain Time Seen by Provider: 08/29/22 00:26 Source: patient Mode of arrival: Ambulatory History of Present Illness HPI narrative: Patient is a healthy 66-year-old female who presents with right flank pain ongoing for the last 48 hours. She denies any injury it is not radiating to her abdomen or down her leg. Sometimes is worse with movement, it is not reproducible with palpation. she has a prior cholecystectomy she is never had kidney stones. She has not taken anything for it. She denies any chest pain, fever chills nausea or vomiting. Related Data Home Medications Medication Instructions Recorded Confirmed Vitamin D Gummy 1 tab PO DAILY 07/06/18 04/01/22 Previous Rx's Medication Instructions Recorded levothyroxine 50 mcg capsule 50 mcg PO DAILY #60 caps 04/01/22 tolterodine 4 mg capsule,extended 4 mg PO DAILY #90 caps 04/01/22 release 24 hr Allergies Allergy/AdvReac Type Severity Reaction Status Date / Time erythromycin base Allergy Intermediate Rash Verified 05/20/22 15:54 [ERYTHROMYCIN BASE] Review of Systems Review of Systems ROS Unobtainable: All systems reviewed & are unremarkable except as noted in HPI and below Patient History Medical History Acne Anxiety Asthma (1985) Borderline hypertension Cataract (2009) Cervical radiculopathy Chicken pox Dermoid cyst (1985) Dermoid cyst (1987) Endometriosis (1985) Gastric ulcer (1995) Hayfever Hemorrhoids Hypothyroid IBS (irritable bowel syndrome) (1997) Lactose intolerance (1997) Lumbar radiculopathy Measles Mumps Obesity (BMI 30-39.9) Ovarian cyst PTSD (post-traumatic stress disorder) Rosacea Shoulder pain (2014) Sleep apnea Stress incontinence Well adult exam Surgical History Anesthesia History of cosmetic surgery (~2001) History of oophorectomy, unilateral (1985) History of oophorectomy, unilateral (1987) Status post appendectomy (1967) Status post cholecystectomy (1996) Status post LASIK surgery (~1999) Family History Brother Age: 62 Lymphoma Cancer Diabetes mellitus Asthma Brother Age: 61 Emphysema, unspecified Asthma Father Heart disease Lung disease Alcoholism Mother Age: 81 Heart disease Emphysema, unspecified Grandfather Heart disease Heart attack Grandmother Cancer Breast cancer Sister Age: 48 Asthma Brother No problems noted. Grandfather No problems noted. Grandmother MVA (motor vehicle accident) Sister No problems noted. Sister No problems noted. Social History household members: spouse Smoking Status: Never smoker alcohol intake: never Smoking Status: Never smoker Substance Use Type: does not use Exam Initial Vital Signs Initial Vital Signs: Vital Signs Temperature 98.1 F 08/29/22 00:15 Pulse Rate 89 08/29/22 00:15 Respiratory Rate 18 08/29/22 00:15 Blood Pressure 199/93 H 08/29/22 00:15 Pulse Oximetry 97 08/29/22 00:15 Oxygen Delivery Method 08/29/22 00:15 GENERAL: Alert pleasant well-appearing 66-year-old female and in no acute distress. HEENT: Head atraumatic,EOMI, pupils reactive, face symmetric, moist mucous membranes CARDIOVASCULAR: Regular rate and rhythm without murmurs, rubs or gallops. RESPIRATORY: Breath sounds equal bilaterally, no wheezes rales or rhonchi. ABDOMEN: Soft, nontender. Normoactive bowel sounds all 4 quadrants. No guarding or rebound. No right upper quadrant pain : Minimal rise CVA tenderness BACK: She is actually more tender in her thoracic area more superiorly off to the right no midline tenderness no paraspinal tenderness. EXTREMITIES: Normal range of motion, no clubbing or edema. Neurovascularly intact NEUROLOGICAL: Alert and oriented x4. SKIN: Warm, dry, no laceration, no petechiae, no rashes or lesions. Course Orders Ordered: ED Orders 08/29/22 00:15 Urine Microscopic Stat 08/29/22 01:01 CT kidney ureter bladder (KUB) Stat 08/29/22 01:10 CBC Auto Diff [Complete Blood Count AUTO DIFF] Stat CMP [Comprehensive Metabolic Panel] Stat Lipase Stat Discontinued Medications Ketorolac Tromethamine (Ketorolac 30 Mg/Ml Vial) 15 mg IV NOW ONE Stop: 08/29/22 00:50 Last Admin: 08/29/22 01:01 Dose: 15 mg Documented By: LUIS FELIPE Vital Signs Vital signs: Vital Signs - 8 hr 08/29/22 00:15 08/29/22 01:10 08/29/22 01:30 Temperature 98.1 F Pulse Rate 89 74 77 Respiratory Rate 18 Blood Pressure 199/93 H Pulse Oximetry 97 98 98 Oxygen Delivery Method Room Air 08/29/22 02:00 08/29/22 02:15 Temperature Pulse Rate 78 Respiratory Rate 18 Blood Pressure 172/82 H Pulse Oximetry 94 Oxygen Delivery Method MDM - Abdominal Pain Lab Data 08/29/22 01:10 08/29/22 01:10 Labs: Lab Results 08/29/22 08/29/22 08/29/22 Range/Units 00:15 01:10 01:10 WBC 14.0 H (4.5-11.0) X10^3/uL RBC 5.17 (4.0-5.2) X10^6/uL Hgb 14.3 (12.0-16.0) g/dL Hct 42.3 (36-46) % MCV 81.8 (80-100) fL MCH 27.6 (26-34) PG MCHC 33.8 (30-36) % RDW 14.0 (11.6-14.8) % Plt Count Not Reportable Neut % (Auto) 70.3 (50-75) % Lymph % (Auto) 20.4 L (25-40) % [place] % (Auto) 7.5 (3-14) % Eos % (Auto) 1.1 L (2-4) % Baso % (Auto) 0.7 (0-2) % Neut # (Auto) 9900 H (2018-4805) /uL Lymph # (Auto) 2900 (1762-7875) /uL [place] # (Auto) 1100 H (0-900) /uL Eos # (Auto) 200 (0-450) /uL Baso # (Auto) 100 (0-100) /uL Platelet Estimate Adequate on smear RBC Morphology Normal morphology Sodium 140 (137-145) mmol/L Potassium 4.1 (3.4-5.1) mmol/L Chloride 102 (98-107) mmol/L Carbon Dioxide 30 (22-32) mmol/L BUN 9 (7-17) mg/dL Creatinine 0.65 (0.52-1.04) mg/dL Estimated GFR > 60 (>60) mL/min BUN/Creatinine Ratio 13.8 (6-22) Glucose 102 (80-110) mg/dL Calcium 8.7 (8.4-10.2) mg/dL Total Bilirubin 0.9 (0.2-1.3) mg/dL AST 28 (14-36) IU/L ALT 26 (<35) IU/L Alkaline Phosphatase 61 (38-126) U/L Total Protein 7.9 (6.3-8.2) g/dL Albumin 4.4 (3.5-5.0) g/dL Globulin 3.5 (1.7-4.1) g/dL Albumin/Globulin Ratio 1.3 (1.0-2.8) Lipase 87 (23-300) U/L Urine RBC None seen (0-5/HPF) Urine WBC None seen (0-5/HPF) Urine Bacteria None seen (None) Ur Culture Indicated? Cult not indicated Micro UA Comment * Point of care testing: Urine Dip Bedside Urine Glucose Negative Bedside Urine Bilirubin - Negative Urine Specific [place] 1.025 Bedside Urine Occult Blood +/- Bedside Urine pH 6.0 Bedside Urine Protein - Negative Bedside Urine Urobilinogen - Negative Bedside Urine Nitrite - Negative Bedside Urine Leukocytes - Negative Esterase Imaging Data CT scan - abdomen/pelvis: Radiologist's Impression: : 1955 Acct:[id number] Age/Sex: 66 / F Date of Service: 08/29/22 Loc: Accession Number: [id number] ?? Procedure: CT kidney ureter bladder (KUB) Ordering Provider: Adilia Gee D.O. PROCEDURE:? CT KIDNEY URETER BLADDER (KUB) ? INDICATIONS:? right flank pain ? TECHNIQUE:? Axial sections were acquired from the lung bases to the pubic symphysis.? Coronal and sagittal reformats were performed.? For radiation dose reduction, the following was used: ?automated exposure control, adjustment of mA and/or kV according to patient size.? ? COMPARISON:? None. ? FINDINGS:? Image quality:? Excellent.? ? Lung bases:? There is minimal atelectasis.? ? Heart:? Heart is normal in size. ? URINARY: Right Kidney and Ureter: ? No stones or hydronephrosis.? No hydroureter.? ? Left Kidney and Ureter: ? No stones or hydronephrosis.? No hydroureter. ? Bladder:? Normal wall thickness. No stones. ? ? ? ABDOMEN: Liver:? There is heterogeneous hypoattenuation of the liver consistent with fatty infiltration.? Gallbladder:? Surgically absent. Biliary ducts:? No biliary ductal dilatation.? ? Pancreas:? Unremarkable.? ? Spleen:? Normal in size.? ? Adrenal Glands:? No adrenal nodules.? ? ? Stomach and Bowel:? Stomach, small bowel loops, and colon are normal in caliber and wall thickness.? No pericecal inflammatory changes to suggest appendicitis.? There is colonic diverticulosis without acute diverticulitis.? Peritoneum:? No abnormal intraperitoneal fluid.? No free air.? There is mild hazy fat stranding within the mesentery with sparing along the vessels and lymph nodes. ? Ventral Wall: ? No hernia.? Abdominal Nodes:? No retroperitoneal or mesenteric adenopathy by size criteria.? Vessels:? Aorta and inferior vena cava are normal in size.? ? PELVIS: Pelvic Organs:? Unremarkable.? ? Pelvic Nodes: No enlarged lymph nodes.? Miscellaneous: No inguinal hernias identified. ? ? ? Bones:? Visualized osseous structures demonstrate no suspicious focal lesions. IMPRESSION:? ? 1. No evidence of nephrolithiasis or obstructive uropathy. ? 2. Indistinct fat stranding within the mesentery likely represents an infectious or inflammatory process such as sclerosing mesenteritis.? ? ? Dictated by: Terry Damon M.D. on 08/29/2022 at 1:04 ?? MDM Narrative Medical decision making narrative: Patient healthy 66-year-old female presenting with right flank pain ongoing for the last 48 hours. Not really radiating down to layer to her abdomen not necessarily reproducible with palpation however certain movements do cause pain. Blood work does show mild leukocytosis of 14. Electrolytes within normal limits no evidence of UTI. Pain is slightly better after Toradol. At this time most likely musculoskeletal. She is noted to be quite hypertensive when she 1st comes in. However I personally retake her blood pressure is 172/82. Dissection was considered however I think on likely due to the fact that it is positional. CT was negative for nephrolithiasis diverticulitis and other etiologies. Discharge Plan Departure Patient Disposition: Home Clinical Impression: Back pain Instructions: DI for Thoracic Back Pain Activity Restrictions/Additional Instructions: *You have been diagnosed with back pain *What to do: At this time no cause of back pain is found. Recommend movement as tolerated heating pad and light stretching. Blood pressure is noted to be mildly elevated here in the ED. I recommend checking her blood pressure once a day at home. It may be related to pain. *Continue to take medications as directed Tylenol 650 mg every 4-6 hours if needed for [id number] pain Motrin 600 mg every 6 hours if needed for [id number] pain *Follow up with your primary care provider in 2-3 days or call [phone] *Return to ER if you should have increasing back pain chest pain shortness of [or] any new, worsening or concerning symptoms Prescriptions: No Action levothyroxine 50 mcg capsule 50 mcg PO DAILY Qty: 60 2RF tolterodine 4 mg capsule,extended release 24hr 4 mg PO DAILY Qty: 90 3RF Vitamin D Gummy 1 tab PO DAILY Label Comments: patient states does not take routinely (trying to) and does not know strength Referrals: Jesse Hernandez, [Primary Care Provider] - Stand Alone Forms: Patient Portal/API
[2022-08-29] MEDS: KETOROLAC 30 MG/ML VIAL 15 MG IV (01:01)
--- NOTE | 2022-08-29 01:01 | DI.CT.S_ITS ---
PROCEDURE: CT KIDNEY URETER BLADDER (KUB) INDICATIONS: right flank pain TECHNIQUE: Axial sections were acquired from the lung bases to the pubic symphysis. Coronal and sagittal reformats were performed. For radiation dose reduction, the following was used: automated exposure control, adjustment of mA and/or kV according to patient size. COMPARISON: None. FINDINGS: Image quality: Excellent. Lung bases: There is minimal atelectasis. Heart: Heart is normal in size. URINARY: Right Kidney and Ureter: No stones or hydronephrosis. No hydroureter. Left Kidney and Ureter: No stones or hydronephrosis. No hydroureter. Bladder: Normal wall thickness. No stones. ABDOMEN: Liver: There is heterogeneous hypoattenuation of the liver consistent with fatty infiltration. Gallbladder: Surgically absent. Biliary ducts: No biliary ductal dilatation. Pancreas: Unremarkable. Spleen: Normal in size. Adrenal Glands: No adrenal nodules. Stomach and Bowel: Stomach, small bowel loops, and colon are normal in caliber and wall thickness. No pericecal inflammatory changes to suggest appendicitis. There is colonic diverticulosis without acute diverticulitis. Peritoneum: No abnormal intraperitoneal fluid. No free air. There is mild hazy fat stranding within the mesentery with sparing along the vessels and lymph nodes. Ventral Wall: No hernia. Abdominal Nodes: No retroperitoneal or mesenteric adenopathy by size criteria. Vessels: Aorta and inferior vena cava are normal in size. PELVIS: Pelvic Organs: Unremarkable. Pelvic Nodes: No enlarged lymph nodes. Miscellaneous: No inguinal hernias identified. Bones: Visualized osseous structures demonstrate no suspicious focal lesions. IMPRESSION: 1. No evidence of nephrolithiasis or obstructive uropathy. 2. Indistinct fat stranding within the mesentery likely represents an infectious or inflammatory process such as sclerosing mesenteritis. Dictated by: Terry Damon M.D. on 08/29/2022 at 1:04 Approved by: Terry Damon M.D. on 08/29/2022 at 1:08
[2022-08-29 01:10] VITALS: PULSE 74; O2SAT 98
[2022-08-29 01:30] VITALS: PULSE 77; O2SAT 98
[2022-08-29 01:30] LABS: Alanine Aminotransferase 26 IU/L (<35); Albumin 4.4 g/dL (3.5-5.0); Albumin Globulin Ratio 1.3 (1.0-2.8); Alkaline Phosphatase 61 U/L (38-126); Aspartate Aminotransferase 28 IU/L (14-36); BUN Creatinine Ratio 13.8 (6-22); Bilirubin Total 0.9 mg/dL (0.2-1.3); Blood Urea Nitrogen 9 mg/dL (7-17); Calcium 8.7 mg/dL (8.4-10.2); Carbon Dioxide 30 mmol/L (22-32); Chloride 102 mmol/L (98-107); Estimated Glomerular Filt Rate > 60 mL/min (>60); Globulin 3.5 g/dL (1.7-4.1); Glucose 102 mg/dL (80-110); HEMOLYSIS 59 (0-50); Lipase 87 U/L (23-300); Potassium 4.1 mmol/L (3.4-5.1); Sodium 140 mmol/L (137-145); Total Protein 7.9 g/dL (6.3-8.2)
[2022-08-29 01:32] LABS: Basophils Absolute Auto 100 /uL (0-100); Basophils Percent Auto 0.7 % (0-2); Eosinophils Absolute Auto 200 /uL (0-450); Eosinophils Percent Auto 1.1 % (2-4); Hematocrit 42.3 % (36-46); Hemoglobin 14.3 g/dL (12.0-16.0); Lymphocytes Absolute Auto 2900 /uL (1100-4500); Lymphocytes Percent Auto 20.4 % (25-40); Mean Corpuscular HGB Conc 33.8 % (30-36); Mean Corpuscular Hemoglobin 27.6 PG (26-34); Mean Corpuscular Volume 81.8 fL (80-100); Monocytes Absolute Auto 1100 /uL (0-900); Monocytes Percent Auto 7.5 % (3-14); Neutrophils Absolute Auto 9900 /uL (1500-7000); Neutrophils Percent Auto 70.3 % (50-75); Red Blood Cell Count 5.17 X10^6/uL (4.0-5.2)
[2022-08-29 01:47] LABS: Add Manual Diff / Slide Review SLIDE REVIEW
[2022-08-29 01:50] LABS: Platelet Estimate Adequate on smear; RBC Morphology Normal Morphology
[2022-08-29 02:00] VITALS: PULSE 78; RESP 18; O2SAT 94
[2022-08-29 02:15] VITALS: BP 172/82
== END 2022-08-29 02:16 | disposition home or self-care (01) ==
PROVIDERS: Emergency Provider Emergency Medicine; PCP Family Medicine
DX: R10.9 Unspecified abdominal pain (principal)
CPT/HCPCS: 36415; 74176; 80053; 81003; 81015; 83690; 85025; 96374; 99284; J1885

== ENCOUNTER → 2023-01-28 14:52 | Outpatient (CLI) | payer BC, SELFPAY ==
[2023-01-28 16:39] LABS: Appearance Urine UA CLOUDY; Bilirubin Urine UA 1+ (NEGATIVE); Color Urine UA ORANGE; Glucose Urine UA TRACE g/dL (Negative); Ketones Urine UA 1+ (NEGATIVE); Leukocyte Esterase Urine UA TRACE (NEGATIVE); Nitrite Urine UA POSITIVE (Negative); Occult Blood Urine UA 1+ (Negative); Protein Urine UA 2+ (Negative); Specific Gravity Urine UA 1.015 (1.000-1.035)
[2023-01-28 16:52] LABS: pH Urine UA 5.5 (4.5-8.0)
[2023-01-28 16:53] LABS: Ictotest Urine Negative (Negative); RBC Urine 0-1/HPF (0-5/HPF); WBC Urine >100/HPF (0-5/HPF)
[2023-01-28 16:54] LABS: Bacteria Urine Many (>30); Culture Indicated Urine Specimen Cultured; Squamous Epithelial Cell Urine 0-1 /HPF (0-5/HPF)
== END ==
PROVIDERS: PCP Family Medicine; Referring Provider Family Medicine; Visit Provider Family Medicine
DX: R30.0 Dysuria (principal)
CPT/HCPCS: 81001; 87077; 87086; 87186

== ENCOUNTER → 2023-02-08 15:13 | Outpatient (CLI) | payer BC, SELFPAY ==
[2023-02-08 15:39] LABS: Appearance Urine UA CLEAR; Bilirubin Urine UA NEGATIVE (NEGATIVE); Color Urine UA YELLOW; Glucose Urine UA NEGATIVE (Negative); Ketones Urine UA NEGATIVE (NEGATIVE); Leukocyte Esterase Urine UA NEGATIVE (NEGATIVE); Nitrite Urine UA NEGATIVE (Negative); Occult Blood Urine UA NEGATIVE (Negative); Protein Urine UA NEGATIVE (Negative); Specific Gravity Urine UA 1.025 (1.000-1.035); Urobilinogen Urine UA 0.2 E.U./dL (0.2)
[2023-02-08 16:02] LABS: pH Urine UA 5.5 (4.5-8.0)
[2023-02-08 16:11] LABS: Bacteria Urine Moderate (10-30); Culture Indicated Urine Specimen Cultured; RBC Urine None Seen (0-5/HPF); Squamous Epithelial Cell Urine 5-10 /HPF (0-5/HPF); WBC Urine 5-10/HPF (0-5/HPF)
== END ==
PROVIDERS: PCP Family Medicine; Referring Provider Family Medicine; Visit Provider Family Medicine
DX: N39.0 Urinary tract infection, site not specified (principal)
CPT/HCPCS: 81001; 87086

== ENCOUNTER → 2023-08-09 08:50 | Outpatient (CLI) | payer BC, SELFPAY ==
[2023-08-09 09:47] LABS: Add Manual Diff / Slide Review NO; Basophils Absolute Auto 100 /uL (0-100); Basophils Percent Auto 0.9 % (0-2); Eosinophils Absolute Auto 100 /uL (0-450); Eosinophils Percent Auto 1.4 % (2-4); Hematocrit 41.3 % (36-46); Hemoglobin 14.1 g/dL (12.0-16.0); Lymphocytes Absolute Auto 2800 /uL (1100-4500); Lymphocytes Percent Auto 26.8 % (25-40); Mean Corpuscular HGB Conc 34.1 % (30-36); Mean Corpuscular Hemoglobin 28.4 PG (26-34); Mean Corpuscular Volume 83.3 fL (80-100); Monocytes Absolute Auto 700 /uL (0-900); Monocytes Percent Auto 7.1 % (3-14); Neutrophils Absolute Auto 6700 /uL (1500-7000); Neutrophils Percent Auto 63.8 % (50-75); Platelet Count 229 X10^3/uL (150-400); Red Blood Cell Count 4.96 X10^6/uL (4.0-5.2); Red Cell Distribution Width 14.1 % (11.6-14.8); White Blood Cell Count 10.5 X10^3/uL (4.5-11.0)
[2023-08-09 10:07] LABS: Alanine Aminotransferase 23 IU/L (<35); Albumin 4.2 g/dL (3.5-5.0); Albumin Globulin Ratio 1.2 (1.0-2.8); Alkaline Phosphatase 65 U/L (38-126); Aspartate Aminotransferase 26 IU/L (14-36); BUN Creatinine Ratio 16.9 (6-22); Bilirubin Total 0.9 mg/dL (0.2-1.3); Blood Urea Nitrogen 11 mg/dL (7-17); Carbon Dioxide 27 mmol/L (22-32); Chloride 103 mmol/L (98-107); Cholesterol 191 mg/dL (140-199); Estimated Glomerular Filt Rate > 60 mL/min (>60); Globulin 3.5 g/dL (1.7-4.1); Glucose 95 mg/dL (80-110); HDL Cholesterol 51 mg/dL (40-60); HEMOLYSIS < 15 (0-50); LDL Cholesterol Calculated 124 mg/dL (<100); Potassium 3.7 mmol/L (3.4-5.1); Sodium 139 mmol/L (137-145); Total Protein 7.7 g/dL (6.3-8.2); Triglycerides 82 mg/dL (35-150)
[2023-08-09 10:15] LABS: Free T4, Direct Thyroxine 1.47 ng/dL (0.78-2.19)
[2023-08-09 10:29] LABS: Thyroid Stimulating Hormone 3.25 uIU/mL (0.47-4.68)
== END ==
LOC: LAB 08:51
PROVIDERS: PCP Family Medicine; Referring Provider Family Medicine; Visit Provider Family Medicine
DX: I10 Essential (primary) hypertension (principal); E03.9 Hypothyroidism, unspecified; Z82.49 Family history of ischemic heart disease and other diseases of the circulatory system
CPT/HCPCS: 36415; 80053; 80061; 84439; 84443; 85025

== ENCOUNTER → 2024-08-16 09:46 | Outpatient (CLI) | payer BC, SELFPAY ==
--- NOTE | 2024-08-16 09:47 | DI.RAD.S_ITS ---
PROCEDURE: FL UPPER GI SERIES INDICATIONS: Gastro-esophageal reflux disease with esophagitis, without b COMPARISON: None. FINDINGS: KUB: Preprocedural ranch manager film demonstrates a normal bowel gas pattern. No suspicious abdominal calcifications. Visualized solid organ contours appear normal. Bony structures appear unremarkable. Esophagus: Esophageal mucosa is normal on air-contrast views. On single-contrast views, there is normal esophageal peristalsis. The patient did not have to double swallow with larger mouthfuls are within normal size mild full she is able do single swallow. No strictures, extrinsic mass effects, or diverticula. There is a prominent ampulla. There is no definite hiatal hernia or elicited gastroesophageal reflux. There is normal transit of a calibrated barium tablet through the esophagus. Stomach: The stomach is normally distensible, with normal rugal fold thickness. No mucosal masses or ulcers. Pylorus and duodenal bulb appear normal in morphology. Duodenal folds are normal in thickness as well. There is an incidental 3.64 cm diverticulum of the proximal jejunum. IMPRESSION: Incidental finding of a jejunal diverticulum, otherwise normal barium swallow and upper GI exam. Dictated by: Teofilo Olivares M.D. on 08/16/2024 at 11:44 Approved by: Teofilo Olivares M.D. on 08/16/2024 at 12:15
== END ==
PROVIDERS: PCP Family Medicine; Referring Provider Family Medicine; Visit Provider Family Medicine
DX: K21.00 Gastro-esophageal reflux disease with esophagitis, without bleeding (principal); K57.10 Diverticulosis of small intestine without perforation or abscess without bleeding
CPT/HCPCS: 74240

== ENCOUNTER → 2025-02-02 08:51 | Outpatient (CLI) | payer BC, SELFPAY ==
[2025-02-02 09:23] LABS: Add Manual Diff / Slide Review NO; Hematocrit 41.8 % (36-46); Hemoglobin 14.2 g/dL (12.0-16.0); Lymphocytes Absolute Auto 2000 /uL (1100-4500); Mean Corpuscular HGB Conc 34.0 % (30-36); Mean Corpuscular Hemoglobin 28.3 PG (26-34); Mean Corpuscular Volume 83.3 fL (80-100); Platelet Count 229 X10^3/uL (150-400)
[2025-02-02 09:32] LABS: Hemoglobin A1C% w Est Avg Glu 5.3 % (4.0-6.0)
[2025-02-02 09:59] LABS: Alanine Aminotransferase 25 IU/L (<35); Albumin 4.0 g/dL (3.5-5.0); Albumin Globulin Ratio 1.4 (1.0-2.8); Alkaline Phosphatase 62 U/L (38-126); Blood Urea Nitrogen 17 mg/dL (7-17); Calcium 8.9 mg/dL (8.4-10.2); Carbon Dioxide 28 mmol/L (22-32); Chloride 105 mmol/L (98-107); Cholesterol 154 mg/dL (140-199); Estimated Glomerular Filt Rate > 60 mL/min (>60); Globulin 2.9 g/dL (1.7-4.1); Glucose 106 mg/dL (70-99); HDL Cholesterol 50 mg/dL (40-60); HEMOLYSIS < 15 (0-50); Potassium 4.0 mmol/L (3.4-5.1); Sodium 139 mmol/L (137-145); Total Protein 6.9 g/dL (6.3-8.2); Triglycerides 78 mg/dL (35-150)
[2025-02-02 10:16] LABS: Free T4, Direct Thyroxine 1.48 ng/dL (0.78-2.19)
[2025-02-02 10:30] LABS: Thyroid Stimulating Hormone 3.16 uIU/mL (0.47-4.68)
== END ==
PROVIDERS: PCP Family Medicine; Referring Provider Family Medicine; Visit Provider Family Medicine
DX: Z00.00 Encounter for general adult medical examination without abnormal findings (principal); E03.9 Hypothyroidism, unspecified; E66.9 Obesity, unspecified; N39.46 Mixed incontinence
CPT/HCPCS: 36415; 80053; 80061; 83036; 84439; 84443; 85025